=== PATIENT | female | born 1925 | race Caucasian/White ===

== ENCOUNTER 2016-08-07 | Outpatient (CLI) | payer MEDICARE, OTHER | END 2016-08-07 12:25 | disposition critical access hospital (66) | CPT/HCPCS: A0425; A0429 ==

== ENCOUNTER 2016-08-07 12:39 | Emergency (ER) | payer MEDICARE, OTHER ==
[2016-08-07] MEDS ORDERED: oxyCOD/ACETAMIN 5 MG/325 MG TABLET PO STA (13:05)
[2016-08-07] MEDS ORDERED: LIDOCAINE 1%-EPI 1:100000 20 ML MDV SUBQ STA (13:06)
[2016-08-07] MEDS ORDERED: oxyCOD/ACETAMIN 5 MG/325 MG TABLET PO ONE (13:25)
[2016-08-07] MEDS ORDERED: LIDOCAINE 1%-EPI 1:100000 20 ML MDV ONE (13:25)
[2016-08-07] MEDS ORDERED: TETANUS/DIPHTHERIA TOXOID 0.5 ML SYRINGE IM ONE ×2 (16:26→16:37)
[2016-08-07] MEDS ORDERED: TETANUS/DIPHTHERIA/PERTUSSIS 0.5 ML SYRINGE IM ONE (16:34)
== END 2016-08-07 18:13 | disposition home or self-care (01) ==
DX: S01.81XA Laceration without foreign body of other part of head, initial encounter (principal); M25.512 Pain in left shoulder; W22.8XXA Striking against or struck by other objects, initial encounter; W18.39XA Other fall on same level, initial encounter; Z23 Encounter for immunization; I11.0 Hypertensive heart disease with heart failure; I50.9 Heart failure, unspecified; I48.91 Unspecified atrial fibrillation; Z79.899 Other long term (current) drug therapy
CPT/HCPCS: 12013; 70450; 73030; 73502; 90471; 90714; 90715; 99283; 99284; A9270

== ENCOUNTER 2016-12-25 13:05 | Outpatient (CLI) | payer MEDICARE, OTHER | END 2016-12-25 13:06 | disposition critical access hospital (66) | LOC: EMS 13:05 | PROVIDERS: ATTEND Surgery | DX: R53.1 Weakness (principal); R39.9 Unspecified symptoms and signs involving the genitourinary system | CPT/HCPCS: A0425; A0429 ==

== ENCOUNTER 2016-12-25 13:22 | Emergency (ER) | payer MEDICARE, OTHER ==
--- NOTE | 2016-12-25 13:47 | ED Physician Documentation ---
History of Present Illness - Stated complaint Stated Complaint: WEAKNESS - Chief complaint Chief Complaint: General - History obtained from History obtained from: Patient - History of Present Illness Timing: Other (89-year-old woman with end-stage renal disease, followed by Dr. Prieto, dialyzed Sunday. She lives at [facility]. For the last week and more significantly over the last 2 days she has had generalized weakness, especially the lower extremities, right greater than left. She has been wheelchair-bound for the last week and has required a 3 person assist over the last couple of days. She did get dialyzed today. She denies any headache, shortness of breath, back pain that is new, pedal edema. She does complain of decreased urine output, at her baseline she usually has normal urine output per her. At her baseline she walks with a walker.) Review of Systems Ten Systems: 10 systems reviewed and negative Constitutional: reports: Fatigue (Chronic). 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 HEENT: Cataracts, Tonsil/Adenoidectomy Derm: Skin cancer surgery - Present Medications Home Medications: Ambulatory Orders Medication Instructions Recorded Confirmed Allopurinol [Zyloprim] 300 mg PO 07/02/13 07/02/13 Calcium/Vit B12/FA/Pyridoxine 1 each PO 07/02/13 07/02/13 [Folic Acid-Vit B6-Vit B12 Tab] Cinacalcet HCl [Sensipar] 60 mg PO 07/02/13 07/02/13 Digoxin 125 mcg PO 07/02/13 07/02/13 Furosemide [Lasix] 80 mg PO BID 07/02/13 07/02/13 Levetiracetam 500 mg PO 07/02/13 07/02/13 Omeprazole 25 gm MC 07/02/13 07/02/13 Sevelamer Carbonate [Renvela] 800 mg PO 07/02/13 07/02/13 metOLazone [Zaroxolyn] 5 mg PO DAILY 07/02/13 07/02/13 traZODone [Desyrel] 100 mg PO HS 07/02/13 07/02/13 Levofloxacin [Levaquin] 250 mg PO UD #3 tablet 12/25/16 - Allergies Allergies/Adverse Reactions: Allergies Allergy/AdvReac Type Severity Reaction Status Date / Time No Known Drug Allergies Allergy Verified 07/01/13 14:50 - Social History Does the pt smoke?: No Smoking Status: Never smoker Does the pt drink ETOH?: Yes Does the pt have substance abuse?: No - Family History Family history: reports: Non contributory PD ED PE NORMAL - Vitals Vital signs reviewed: Yes - General General: Alert and oriented X 3, No acute distress - HEENT HEENT: PERRL, EOMI, Ears normal - Neck Neck: Supple, no meningeal sign, No bony TTP - Cardiac Cardiac: RRR, No murmur - Respiratory Respiratory: No respiratory distress, Clear bilaterally - Abdomen Abdomen: Normal bowel sounds, Soft, Non tender - Back Back: No CVA TTP, No spinal TTP - Derm Derm: Normal color, Warm and dry - Extremities Extremities: Other (Asymmetry of the legs, left is greater than the right with venous stasis changes, this is chronic per the patient.) - Neuro Neuro: Alert and oriented X 3, No sensory deficit, Normal speech, Other (She is able to lift either leg off the bed and hold it up for 5 seconds. She does have some weakness when I push her legs down. She has good medical reimbursement specialist strength and no pronator drift in the arm, although I am incompletely of able to evaluate the left arm pronator drift because she cannot lift it off the bed because of a bad shoulder.) - Psych Psych: Normal mood, Normal affect Results - Vitals Vitals: Vital Signs - 24 hr 12/25/16 12/25/16 13:25 17:10 Temperature 37.3 C 37.0 C Heart Rate 80 86 Respiratory 18 22 Rate Blood Pressure 125/49 L 123/55 L O2 Saturation 99 96 Oxygen O2 Source Room air - EKG (time done) 1339 Rate: Rate (enter#) (77) Rhythm: NSR Intervals: No: Normal [place] (108msec) QRS: Low voltage Ischemia: Non specific changes Computer interpretation: Agree with computer - Labs Labs: Laboratory Tests 12/25/16 12/25/16 12/25/16 14:40 14:40 14:40 WBC 7.7 RBC 3.51 L Hgb 11.6 L Hct 33.8 L MCV 96.3 MCH 32.9 H MCHC 34.2 RDW 12.5 Plt Count 244 MPV 7.7 L Neut # 5.6 Lymph # 1.0 L Gregory # 0.9 Eos # 0.0 Baso # 0.1 Absolute Nucleated RBC 0.00 Nucleated RBCs 0.0 Sodium 133 L Potassium 4.3 Chloride 90 L Carbon Dioxide 32 Anion Gap 11.0 BUN 41 H Creatinine 5.1 H Estimated GFR (MDRD) 8 L Glucose 121 H Lactic Acid 2.0 Calcium 9.1 Magnesium 2.1 Total Bilirubin 0.4 AST 18 ALT 23 Alkaline Phosphatase 84 Total Protein 7.3 Albumin 3.5 Globulin 3.8 Albumin/Globulin Ratio 0.9 L Lipase 45 TSH Urine Color Urine Clarity Urine pH Ur Specific [place] Urine Protein Urine Glucose (UA) Urine Ketones Urine Occult Blood Urine Nitrite Urine Bilirubin Urine Urobilinogen Ur Leukocyte Esterase Urine RBC Urine WBC Ur Squamous Epith Cells Urine Bacteria Ur Microscopic Review Urine Culture Comments 12/25/16 12/25/16 14:40 15:22 WBC RBC Hgb Hct MCV MCH MCHC RDW Plt Count MPV Neut # Lymph # Gregory # Eos # Baso # Absolute Nucleated RBC Nucleated RBCs Sodium Potassium Chloride Carbon Dioxide Anion Gap BUN Creatinine Estimated GFR (MDRD) Glucose Lactic Acid Calcium Magnesium Total Bilirubin AST ALT Alkaline Phosphatase Total Protein Albumin Globulin Albumin/Globulin Ratio Lipase TSH 1.49 Urine Color YELLOW Urine Clarity CLOUDY Urine pH 7.5 Ur Specific [place] 1.015 Urine Protein 30 H Urine Glucose (UA) NEGATIVE Urine Ketones NEGATIVE Urine Occult Blood SMALL H Urine Nitrite NEGATIVE Urine Bilirubin NEGATIVE Urine Urobilinogen 0.2 (NORMAL) Ur Leukocyte Esterase LARGE H Urine RBC 6-10 H Urine WBC >25 H Ur Squamous Epith Cells NONE SEEN Urine Bacteria Few Ur Microscopic Review INDICATED Urine Culture Comments INDICATED - Rads (name of study) CT Head Radiology: EMP read contemporaneously (Cystic structure in the brain which the patient was aware of and has seen a neurosurgeon before and ignorance was advised.) PD MEDICAL DECISION MAKING - ED course ED course: Bladder scan 630 mL on arrival, straight cath ordered. 89-year-old woman presents with several days worth of increasing weakness, she is a dialysis patient. 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 I discussed the cystic lesion with her and she will follow-up again with her primary care physician to discuss a second opinion on neurosurgery evaluation, but she has already had a neurosurgical evaluation and no intervention was recommended. I suspect her general weakness right now is from her bladder infection and she did receive Levaquin every other day after dialysis. She was offered admission but she felt like she would be okay at home. However [facility] would not [facility] her [facility], she was a 4 person assist this morning to get her up and is beyond their abilities. Called to Dr. Pierre for admission at 5:05 PM. Based on dialysis dependence felt she needed transfer to dialysis capable facilty. Accepted by Dr Kane Patel at 1740 Departure - Departure Disposition: 02 Transfer Acute Care Hosp Clinical Impression: Weakness, ESRD (end stage renal disease) UTI (urinary tract infection) Qualifiers: Urinary tract infection type: acute cystitis Hematuria presence: without hematuria Qualified Code(s): N30.00 - Acute cystitis without hematuria Condition: Good Record reviewed to determine appropriate education?: Yes Instructions: ED UTI Cystitis Female Prescriptions: Levofloxacin [Levaquin] 250 mg PO UD #3 tablet Comments: . Follow-up with Dr. Orellana, discussed the abnormality on your head CT, consider a new evaluation by neurosurgery. Return if worse.
[2016-12-25 14:49] LABS: BASOPHILS # (AUTO) 0.1 10^3/uL (0.0-0.1); BASOPHILS % (AUTO) 1.4 %; EOSINOPHILS % (AUTO) 0.3 %; HCT - HEMATOCRIT 33.8 % (37.0-47.0); HGB - HEMOGLOBIN 11.6 g/dL (12.0-16.0); LYMPHOCYTES % (AUTO) 13.2 %; MEAN CORPUSCULAR HEMOGLOBIN 32.9 pg (27.0-31.0); MEAN CORPUSCULAR HGB CONC 34.2 g/dL (32.0-36.0); MEAN CORPUSCULAR VOLUME 96.3 fL (81.0-99.0); MEAN PLATELET VOLUME 7.7 fL (7.9-10.8); MONOCYTES # (AUTO) 0.9 10^3/uL (0.0-1.0); MONOCYTES % (AUTO) 11.8 %; NEUTROPHILS # (AUTO) 5.6 10^3/uL (1.5-6.6); NEUTROPHILS % (AUTO) 73.3 %; RED BLOOD COUNT 3.51 10^6/uL (4.20-5.40); RED CELL DISTRIBUTION WIDTH 12.5 % (12.0-15.0); UNCORRECTED WHITE BLOOD COUNT 7.7 x10^3/uL; WHITE BLOOD COUNT 7.7 x10^3/uL (4.8-10.8)
[2016-12-25 15:03] LABS: ALBUMIN/GLOBULIN RATIO 0.9 (1.0-2.2); BILIRUBIN,TOTAL 0.4 mg/dL (0.2-1.0); CALCIUM 9.1 mg/dL (8.5-10.3); CREATININE 5.1 mg/dL (0.4-1.0); MAGNESIUM 2.1 mg/dL (1.7-2.8); POTASSIUM 4.3 mmol/L (3.5-5.0); TOTAL PROTEIN 7.3 g/dL (6.7-8.2)
[2016-12-25 15:31] LABS: BILIRUBIN,URINE NEGATIVE (NEGATIVE); PH,URINE 7.5 PH (5.0-7.5)
[2016-12-25 15:32] LABS: UA w/ MICROSCOPIC CHARGE YES
--- NOTE | 2016-12-25 15:36 | CT Report ---
EXAM: CT HEAD EXAM DATE: 12/25/2016 02:23 PM. CLINICAL HISTORY: Weak, mag RLE. COMPARISON: Head CT dated 08/07/2016. TECHNIQUE: Multiaxial CT images were obtained from the foramen magnum to the vertex. IV contrast: Non e. Reformats: Coronal. In accordance with CT protocol optimization, one or more of the following dose reduction techniques w ere utilized for this exam: automated exposure control, adjustment of mA and/or KV based on patient s ize, or use of iterative reconstructive technique. FINDINGS: Parenchyma: Again demonstrated is the large CSF attenuating cystic structure in the right anterior cr anial fossa measuring up to 8.5 x 6.5 cm, previously 8.3 x 6.6 cm. This crosses the midline and produ blaine mass effect on the adjacent parenchyma with effacement of the right lateral ventricle and subfalc ine right to left herniation. This is similar to the prior examination. No intracranial hemorrhage. Extraaxial Spaces: See above Ventricles: Normal in size and position. Sinuses: Moderate mucosal thickening in the left maxillary sinus. Bones: No evidence of fracture or calvarial defect. Other: None. IMPRESSION: 1. No acute intracranial abnormality. 2. Again demonstrated is the CSF attenuating cystic structure in the right anterior cranial fossa pro ducing significant mass effect on the adjacent brain parenchyma, crossing the lower midline, effacing the right lateral ventricle and producing a [id number] subfalcine herniation of the adjacent brai n parenchyma. This is similar in size measuring 8.5 x 6.5 cm, previously 8.3 x 6.6 cm. While this may represent and arachnoid cyst other etiologies cannot be entirely excluded. 3. New moderate mucosal thickening in the left maxillary sinus may represent sinusitis. [facility] Referring Provider Line: [phone] SITE ID: [id number]
[2016-12-25] MEDS ORDERED: levoFLOXacin 250 MG TABLET PO STA (15:46)
[2016-12-25] MEDS ORDERED: levoFLOXacin 250 MG TABLET ONE (16:00)
[2016-12-25 16:21] LABS: WBC,URINE >25 /HPF (0-5)
[2016-12-25 16:22] LABS: UR CULTURE IF IND INDICATED
[2016-12-25 21:19] VITALS: BP 137/78
== END 2016-12-25 20:30 | disposition short-term general hospital (02) ==
LOC: EDUNIT# → ED 13:22
DX: R53.1 Weakness (principal); R53.83 Other fatigue; N30.00 Acute cystitis without hematuria; I13.2 Hypertensive heart and chronic kidney disease with heart failure and with stage 5 chronic kidney disease, or end stage renal disease; N18.6 End stage renal disease; I50.9 Heart failure, unspecified; Z99.2 Dependence on renal dialysis; Z90.710 Acquired absence of both cervix and uterus; Z99.3 Dependence on wheelchair
CPT/HCPCS: 36415; 51701; 70450; 80053; 81001; 83605; 83690; 83735; 84443; 85025; 87077; 87086; 87181; 93005; 99284; 99285; A9270; 81003

== ENCOUNTER 2016-12-25 20:31 | Outpatient (CLI) | payer MEDICARE, OTHER | END 2016-12-25 20:32 | disposition short-term general hospital (02) | LOC: EMS 20:31 | PROVIDERS: ATTEND Surgery | DX: R93.0 Abnormal findings on diagnostic imaging of skull and head, not elsewhere classified (principal); R53.1 Weakness; N39.0 Urinary tract infection, site not specified | CPT/HCPCS: A0170; A0425; A0428 ==